=== PATIENT | female | born 1995 | race African-American/Black ===

== ENCOUNTER 2020-08-09 17:29 | Emergency (ER) | payer OTHER, SELFPAY ==
[2020-08-09 17:35] VITALS: BP 119/63; PULSE 58; RESP 17; TEMP 35.9; O2SAT 99
[2020-08-09 19:24] LABS: Add Urine Microscopic? YES; Appearance Urine Cloudy (Clear); Bilirubin Urine Negative (Negative); Blood Urine Negative (Negative); Color Urine Yellow (Yellow); Glucose Urine UA Negative (Negative); Ketones Urine Negative (Negative); Leukocyte Esterase Ur Negative LEU/UL (Negative); Mucus Urine Rare /lpf; Nitrate Urine Negative (Negative); Protein Urine Negative (Negative); RBC Urine 0-2 /hpf (0-2); Specific Grav Ur 1.018 (1.001-1.035); Squamous Epithelial Cell Urine Rare /hpf (Few); Urobilinogen Urine Negative mg/dL (<2.0); WBC Urine 0-3 /hpf
[2020-08-09 19:33] LABS: Basophils Percent Auto 0.5 % (0.2-1.2); Eosinophils Percent Auto 0.5 % (0-4.4); Hematocrit 34.4 % (37.0-47.0); Immature Granulocyte Absolute 0.02 K/mm3 (0.00-0.031); Immature Granulocyte Percent A 0.3 % (0-0.5); Lymphocytes Absolute Auto 2.71 K/mm3 (0.9-3.2); Lymphocytes Percent Auto 40.9 % (18.3-44.2); Mean Corpuscular HGB Conc 29.1 g/dl (32-36); Mean Corpuscular Hemoglobin 21.6 pg (26-34); Mean Corpuscular Volume 74.1 fl (80-100); Mean Platelet Volume 8.9 fl (7.4-10.4); Monocytes Absolute Auto 0.7 K/mm3 (0.1-0.6); Monocytes Percent Auto 10.4 % (2.6-8.5); Neutrophils Absolute Auto 3.1 K/mm3 (1.3-6.7); Neutrophils Percent Auto 47.4 % (45.5-73.1); Platelet Count Result 374 k/mm3 (150-375); Red Blood Count 4.64 M/mm3 (4.2-5.4); Red Cell Distribution Width 19.8 % (11.5-14.5); White Blood Count 6.6 K/mm3 (4.5-10.0)
[2020-08-09] MEDS: SODIUM CHLORIDE 0.9% IV 1,000 ML 999 ML IV CONT (19:33)
[2020-08-09 19:44] LABS: Alanine Aminotransferase 12 U/L (4-35); Albumin Level 4.6 g/dL (3.5-5.1); Alkaline Phosphatase 58 U/L (38-126); Anion Gap 6 mmol/L (8-16); Aspartate Amino Transferase 32 U/L (14-36); Bilirubin,Total 0.1 mg/dL (0.2-1.3); Blood Urea Nitrogen 11 mg/dL (7-17); Calcium 10.1 mg/dL (8.4-10.2); Carbon Dioxide 28 mmol/L (22-30); Chloride 106 mmol/L (98-107); Estimated CRCL calculation 112 ml/min; Estimated Glomerular Filt Rate > 60; Glucose 87 mg/dL (65-105); Lipase 55 U/L (23-300); Potassium 3.9 mmol/L (3.4-5.0); Sodium 140 mmol/L (137-145)
--- NOTE | 2020-08-09 19:57 | ED.ABDPAIN ---
HPI - Abdominal Pain General Chief Complaint: Abdominal Pain Stated Complaint: I want a blood test Time Seen by Provider: 08/09/20 19:03 Source: patient and RN notes reviewed Mode of arrival: ambulatory Limitations: no limitations History of Present Illness HPI narrative: Patient is 24 years old -[place] female presents with left abdominal pain started 2 days ago, sharp, stabbing, intermittent, questionable cramps, denies aggravating or relieving factors. Associated with nausea and fatigue. Patient believes that there is a possibility of . Last menstrual. Was Thursday and lasted for only 1 day. Patient is 1 para 0 1. Patient denies any fever, chills, respiratory symptoms, chest pain. Patient does not smoke or drink or uses marijuana. Related Data Allergies Allergy/AdvReac Type Severity Reaction Status Date / Time No Known Allergies Allergy Unverified 12/06/18 18:00 Review of Systems Review of Systems: Narrative: CONSTITUTIONAL: Denies fever, chills, or sweats. EYES: Denies visual changes, redness, or discharge. ENT: Denies rhinorrhea, congestion, sore throat, or otalgia. CARDIOVASCULAR: Denies chest pain, palpitations, or edema. RESPIRATORY: Denies cough or dyspnea. GASTROINTESTINAL: Denies abdominal pain, nausea, vomiting, or diarrhea. GENITOURINARY: Denies dysuria or hematuria. SKIN: Denies rash or itching. MUSCULOSKELETAL: Denies back pain, joint pain, or myalgia. NEUROLOGIC: Denies headache, numbness, or weakness. PSYCHIATRIC: Denies anxiety or depression. Exam Narrative: Exam Narrative: General appearance: Well-developed, well-nourished Skin: Normal color Head: Normocephalic, nontraumatic Eyes: Clear conjunctiva ENT: Oropharynx normal, ears normal, nose normal Neck: Supple, nontender Chest and respiratory: Airway patent, no respiratory distress, no accessory muscle use Heart: Regular rate/rhythm Abdomen: Soft, nontender, no organomegaly, quiet bowel sounds Vascular: Normal peripheral pulses, normal capillary refill. Musculoskeletal: Normal range of motion, nontender back Neurologic: Alert and oriented ?3, GOVERNMENT PROGRAM MANAGER is normal as tested, no gross motor deficit Course Course Emergency Course: Stable Reevaluation(s) Reevaluation #1: Patient feeling okay, declined CAT scan of the abdomen, telling me that she is going to follow-up with her POULTRY PACKER and form grader in the next few days. Date: 08/09/20 Time: 20:59 Vital Signs Vital signs: Vital Signs Temperature 35.9 C L 08/09/20 17:35 Pulse Rate 58 L 08/09/20 17:35 Respiratory Rate 17 08/09/20 17:35 Blood Pressure 119/63 08/09/20 17:35 Pulse Oximetry 99 08/09/20 17:35 Temperature 35.9 C L 08/09/20 17:35 Pulse Rate 58 L 08/09/20 17:35 Respiratory Rate 17 08/09/20 17:35 Blood Pressure 119/63 08/09/20 17:35 Pulse Oximetry 99 08/09/20 17:35 MDM - Abdominal Pain MDM Narrative Medical decision making narrative: Patient presents with possible , and abdominal pain. Labs, CT abdomen pelvis with IV contrast, UA ordered. Further plan to follow Differential Diagnosis Differential diagnosis: Likely abdominal pain, constipation, pancreatitis and other (, urinary tract infection, and anxiety related symptoms) Lab Data Result diagrams: 08/09/20 19:27 08/09/20 19:27 Labs: Lab Results 08/09/20 08/09/20 08/09/20 Range/Units 19:16 19:27 19:27 WBC 6.6 (4.5-10.0) K/mm3 RBC 4.64 (4.2-5.4) M/mm3 Hgb 10.0 L (12.0-15.0) g/dL Hct 34.4 L (37.0-47.0) % MCV 74.1 L (80-100) fl MCH 21.6 L (26-34) pg MCHC 29.1 L (32-36) g/dl RDW 19.8 H (11.5-14.
[2020-08-09 20:09] VITALS: BP 125/86; PULSE 65; RESP 16; TEMP 36.4; O2SAT 100
[2020-08-09 20:50] LABS: SPREG INTERNAL CONTROL Positive; Serum Qual hCG Negative
--- NOTE | 2020-08-09 20:57 | PC.NURSE ---
Pt informed of Neg blood preg test. Pt reports she would like to be released and she will f/u with her GI specialist tomorrow. that's all I was after anyway . No current pain or nausea. EDP informed.
[2020-08-09 21:11] VITALS: BP 132/72; PULSE 70; RESP 16; O2SAT 98
== END 2020-08-09 21:10 | disposition home or self-care (01) ==
PROVIDERS: Emergency Provider Emergency Medicine
DX: R10.12 Left upper quadrant pain (principal)
CPT/HCPCS: 36415; 80053; 81001; 81025; 83690; 84703; 85025; 99283; J7030

== ENCOUNTER 2021-11-06 22:49 | Emergency (ER) | payer OTHER, SELFPAY ==
[2021-11-06 23:21] VITALS: BP 128/73; PULSE 79; RESP 16; TEMP 36.8; O2SAT 100
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
[2021-11-07 00:35] LABS: Appearance Urine Clear (Clear); Bilirubin Urine Negative (Negative); Color Urine Yellow (Yellow); Glucose Urine UA Negative (Negative); Ketones Urine Negative (Negative); Leukocyte Esterase Ur 3+ LEU/UL (Negative); Nitrate Urine Negative (Negative); Protein Urine Negative (Negative); Specific Grav Ur <= 1.005 (1.001-1.035); Urobilinogen Urine 0.2 mg/dL (<2.0); pH Urine 5.5 (5.0-9.0)
[2021-11-07 00:37] LABS: Bacteria Urine Trace /hpf
[2021-11-07 00:45] LABS: Add Urine Microscopic? YES; Blood Urine Trace (Negative)
[2021-11-07] MEDS: cefTRIAXone 1 GM VIAL 0.5 GM IM (01:16)
[2021-11-07 01:20] VITALS: BP 127/87; PULSE 76; RESP 16; O2SAT 98
[2021-11-07] MEDS: DOXYCYCLINE HYCLATE 100 MG TABLET PO (01:20)
== END 2021-11-07 01:46 | disposition home or self-care (01) ==
PROVIDERS: Emergency Provider Nurse Practitioner Family
DX: N39.0 Urinary tract infection, site not specified (principal); Z20.2 Contact with and (suspected) exposure to infections with a predominantly sexual mode of transmission
CPT/HCPCS: 81001; 81025; 87491; 87591; 87808; 96372; 99284; A9270; J0696